=== PATIENT | male | born 1990 ===

== ENCOUNTER 2018-08-30 12:05 | Emergency (ER) | payer MEDICAID ==
[2018-08-30 12:10] VITALS: BP 114/67; PULSE 75; TEMP 97.6; O2SAT 99
[2018-08-30] MEDS ORDERED: Lidocaine 1% Inj (20ml) INFIL ONE (12:29)
[2018-08-30] MEDS ORDERED: Tdap Vaccine 0.5 ml Vial (10-64 yrs) IM ONE (12:35)
[2018-08-30] MEDS ORDERED: Lidocaine Hydrochloride 10 ML INJ ONE (12:35)
[2018-08-30] MEDS ORDERED: Bacitracin 500 Units/gm Oint Foilpak UD TOP ONE (13:10)
--- NOTE | 2018-08-30 13:10 | C.PDOC ---
History Of Present Illness 28 year old male presents to the ED for evaluation of laceration to the left forearm s/p trip and fall injury sustained prior to arrival. Patient reports he tripped and fell while holding a coffee cup, coffee cup broke resulting in current injury. He admits tetanus shot is not up to date. Denies LOC, other injuries, and any other associated symptoms. Time Seen by Provider: 08/30/18 12:16 Chief Complaint (Nursing): Upper Extremity Problem/Injury History Per: Patient History/Exam Limitations: no limitations Onset/Duration Of Symptoms: Other (prior to arrival) Current Symptoms Are (Timing): Still Present Past Medical History Reviewed: Historical Data, Nursing Documentation, Vital Signs Vital Signs: Last Vital Signs Temp 97.6 F 08/30/18 12:09 Pulse 75 08/30/18 12:09 Resp 20 08/30/18 12:09 BP 114/67 08/30/18 12:09 Pulse Ox 99 08/30/18 12:09 Family History: States: Unknown Family Hx - Social History Hx Alcohol Use: No Hx Substance Use: No - Immunization History Hx Tetanus Toxoid Vaccination: No Hx Influenza Vaccination: No Hx Pneumococcal Vaccination: No Review Of Systems Except As Marked, All Systems Reviewed And Found Negative. Skin: Positive for: Other (laceration to the left forearm. ) Physical Exam - Physical Exam Appears: Well, Non-toxic Skin: Warm, Dry, Other (8cm dog-ear flap lac to the left forearm.) Head: Atraumatic, Normacephalic Eye(s): bilateral: Normal Inspection, PERRL, EOMI Oral Mucosa: Moist Neck: Normal ROM, Supple Chest: Symmetrical Cardiovascular: Rhythm Regular, No Murmur Respiratory: Normal Breath Sounds, No Rales, No Rhonchi, No Wheezing Gastrointestinal/Abdominal: Normal Exam, Soft, No Tenderness Extremity: No Deformity Extremity: Bilateral: Atraumatic, Normal Color And Temperature, Normal ROM Pulses: Left Radial: Normal, Right Radial: Normal Neurological/Psych: Oriented x3, Normal Speech, Normal Cognition, Normal Motor, Normal Sensation ED Course And Treatment O2 Sat by Pulse Oximetry: 99 (RA) Pulse Ox Interpretation: Normal Procedure: Wound Repair - Procedure Procedure: Wound Repair: 8cm dog-ear flap lac to the left forearm - Consent Obtained Consent obtained: Verbal - Performed by Performed by: Attending Physician - Indications Indication(s):: Laceration - Location Shape:: Linear Dimensions Length cm: 8cm Depth:: Epidermis - Anesthetic Technique Local/Regional Anesthetic:: Lidocaine 1% - Irrigated Irrigated with ml of normal saline: 500cc - Complexity Complexity:: Simple (one layer) - Wound repair method Sutures:: # (x13. 4-o nylon and 5-o nylon.) - Muscle repiar layer closed with Muscle repair layer closed with:: Tetanus ordered - Patient tolerated procedure Patient Tolerated Procedure:: Well Medical Decision Making Medical Decision Making: Assessment: left forearm laceration Plan: -Adacel Keflex Progress/Update: Patient advised to follow up within 1-2 days and to have sutures removed in 12 days. Disposition Counseled Patient/Family Regarding: Diagnosis, Need For Followup, Rx Given - Disposition Referrals: [facility] at [facility] [place] [Outside] Disposition: HOME/ ROUTINE Disposition Time: 13:08 Condition: STABLE Additional Instructions: follow up with your doctor within 2 days call to make an appointment take medications as prescribed return to ER if symptoms worsens or progress wound check in 2 days suture removal in 12 days keep dry for 24 hours warm water and soap to clean thereafter apply bacitracin twice daily Prescriptions: Cephalexin [Keflex] 500 mg PO QID #40 capsule Instructions: Laceration Repair, Wound Care (DC) Forms: Gen Discharge Inst Czech, Ornis (Czech) Print Language: KAZAKH - Clinical Impression Clinical Impression: Laceration - Scribe Statement The provider has reviewed the documentation as recorded by the Scribe (Hiwot Diaz) Provider Attestation: All medical record entries made by the Scribe were at my direction and personally dictated by me. I have reviewed the chart and agree that the record accurately reflects my personal performance of the history, physical exam, medical decision making, and the department course for this patient. I have also personally directed, reviewed, and agree with the discharge instructions and disposition.
[2018-08-30] MEDS ORDERED: Tetanus/Diphtheria Toxoids 0.5 ml Syringe IM ONE (13:21)
[2018-08-30] MEDS ORDERED: Bacitracin 500 Units/gm Oint Foilpak UD ONE (13:21)
[2018-08-30 13:38] VITALS: RESP 18
== END 2018-08-30 13:30 | disposition home or self-care (01) ==
LOC: C.ER 12:05
DX: S51.812A Laceration without foreign body of left forearm, initial encounter (principal); W01.0XXA Fall on same level from slipping, tripping and stumbling without subsequent striking against object, initial encounter; Z23 Encounter for immunization

== ENCOUNTER 2018-09-01 12:35 | Emergency (ER) | payer MEDICAID ==
[2018-09-01 13:00] VITALS: BP 106/58; PULSE 88; RESP 18; TEMP 99.3; O2SAT 99
--- NOTE | 2018-09-01 13:19 | C.PDOC ---
History Of Present Illness 28 y/o male presents to the ER for wound check to the left forearm. Patient states that he had wound repair in [facility] ER 2 days ago. Patient denies having fever, chills, and drainage from the area. Time Seen by Provider: 09/01/18 13:06 Chief Complaint (Nursing): Wound Check History Per: Patient History/Exam Limitations: no limitations Past Medical History Reviewed: Historical Data, Nursing Documentation, Vital Signs Vital Signs: Last Vital Signs Temp 99.3 F 09/01/18 12:56 Pulse 88 09/01/18 12:56 Resp 18 09/01/18 12:56 BP 106/58 L 09/01/18 12:56 Pulse Ox 99 09/01/18 12:56 - Medical History PMH: No Chronic Diseases Surgical History: No Surg Hx Family History: States: No Known Family Hx - Social History Hx Alcohol Use: Yes Hx Substance Use: Yes - Immunization History Hx Tetanus Toxoid Vaccination: Yes Hx Influenza Vaccination: No Hx Pneumococcal Vaccination: No Review Of Systems Constitutional: Negative for: Fever, Chills, Weakness Eyes: Positive for: Other ((-) scleral icterus). Negative for: Redness ENT: Negative for: Mouth Swelling Cardiovascular: Negative for: Chest Pain Respiratory: Negative for: Cough, Shortness of Breath Gastrointestinal: Negative for: Nausea, Vomiting, Diarrhea Genitourinary: Negative for: Dysuria, Hematuria Musculoskeletal: Negative for: Back Pain Skin: Negative for: Rash Neurological: Negative for: Weakness, Numbness, Dizziness Physical Exam - Physical Exam Appears: Non-toxic, No Acute Distress Skin: Normal Color, Warm, Dry, Other (well-healing laceration to left forearm, no surrounding erythema, no drainage, no induration) Head: Atraumatic, Normacephalic Eye(s): bilateral: Normal Inspection Nose: Normal Oral Mucosa: Moist Neck: Supple Chest: Symmetrical Neurological/Psych: Oriented x3, Normal Speech ED Course And Treatment O2 Sat by Pulse Oximetry: 99 (RA) Pulse Ox Interpretation: Normal Medical Decision Making Medical Decision Making: Patient has been instructed to follow up in ER for suture removal. Disposition Counseled Patient/Family Regarding: Diagnosis, Need For Followup - Disposition Disposition: HOME/ ROUTINE Disposition Time: 14:00 Condition: STABLE Additional Instructions: RADHA ESCOBAR, thank you for letting us take care of you today. Your provider was Yelitza Tolliver MD and you were treated for WOUND CHECK. The emergency medical care you received today was directed at your acute symptoms. If you were prescribed any medication, please fill it and take as directed. It may take several days for your symptoms to resolve. Return to the Emergency Department if your symptoms worsen, do not improve, or if you have any other problems. Please contact your doctor or call one of the physicians/clinics you have been referred to that are listed on the Patient Visit Information form that is included in your discharge packet. Bring any paperwork you were given at discharge with you along with any medications you are taking to your follow up visit. Our treatment cannot replace ongoing medical care by a primary care provider outside of the emergency department. Thank you for allowing the [facility] team to be part of your care today. Instructions: Wound Care (DC) Forms: [employer] (Slovak), General Discharge Instructions Print Language: BELARUSIAN - Clinical Impression Clinical Impression: Visit for wound check
== END 2018-09-01 13:39 | disposition home or self-care (01) ==
LOC: C.ER 12:35
DX: Z48.00 Encounter for change or removal of nonsurgical wound dressing (principal)

== ENCOUNTER 2018-09-11 19:17 | Emergency (ER) | payer MEDICAID ==
--- NOTE | 2018-09-11 20:38 | C.PDOC ---
History Of Present Illness 28 y/o male presents to the ER for suture removal from left forearm. Patient states that he has laceration repair in [facility] ER on 08/28/18. Patient denies having wound drainage, fever,and chills. Time Seen by Provider: 09/11/18 20:05 Chief Complaint (Nursing): Suture/Staple Removal History Per: Patient History/Exam Limitations: no limitations Past Medical History Reviewed: Historical Data, Nursing Documentation, Vital Signs Vital Signs: Last Vital Signs Temp 97.9 F 09/11/18 19:59 Pulse 61 09/11/18 19:59 Resp 20 09/11/18 19:59 BP 116/61 09/11/18 19:59 Pulse Ox 97 09/11/18 19:59 - Medical History PMH: No Chronic Diseases Other Surgeries: Hx of surgeries Family History: States: No Known Family Hx - Social History Hx Alcohol Use: Yes Hx Substance Use: No - Immunization History Hx Tetanus Toxoid Vaccination: Yes Hx Influenza Vaccination: No Hx Pneumococcal Vaccination: No Review Of Systems Except As Marked, All Systems Reviewed And Found Negative. Constitutional: Negative for: Fever, Chills Physical Exam - Physical Exam Appears: Non-toxic, No Acute Distress Skin: Normal Color, Warm, Dry, Other (well-healed wound to dorsal aspect of left forearm with small skin flap with dry partially necrotic border , (+)scabbing on all borders) Head: Atraumatic, Normacephalic Eye(s): bilateral: Normal Inspection Nose: Normal Oral Mucosa: Moist Neck: Supple Chest: Symmetrical Neurological/Psych: Oriented x3, Normal Speech ED Course And Treatment O2 Sat by Pulse Oximetry: 97 (RA) Pulse Ox Interpretation: Normal Progress Note: Sutures have been removed successfully. There was no wound dehiscence. Patient has been instructed about wound care. Patient has been discharged and instructed to follow up with PMD. Wound care instructions discussed Disposition Counseled Patient/Family Regarding: Diagnosis, Need For Followup, Rx Given - Disposition Referrals: [facility] [Outside] Disposition: HOME/ ROUTINE Disposition Time: 20:35 Condition: STABLE Additional Instructions: Please follow up with PMD Apply bacitracin oint Use scar reducing oint Return to ER if redness, draining or worse Instructions: Stitches Removal Forms: [employer] (Turkish) Print Language: TOGOLESE - Clinical Impression Clinical Impression: Removal of suture - PA / CHEMIST WATER PURIFICATION / Resident Statement MD/DO has reviewed & agrees with the documentation as recorded. - Scribe Statement The provider has reviewed the documentation as recorded by the Scribe Stew Brand Provider Attestation All medical record entries made by the Nancyibe were at my direction and personally dictated by me. I have reviewed the chart and agree that the record accurately reflects my personal performance of the history, physical exam, medical decision making, and the department course for this patient. I have also personally directed, reviewed, and agree with the discharge instructions and disposition.
[2018-09-11 20:41] VITALS: BP 108/68; PULSE 70; RESP 14; TEMP 98
[2018-09-11 21:02] VITALS: O2SAT 97
== END 2018-09-11 20:41 | disposition home or self-care (01) ==
LOC: C.ER 19:17
DX: Z48.02 Encounter for removal of sutures (principal)